=== PATIENT | male | born 1965 | race African-American/Black ===

== ENCOUNTER 2024-02-04 13:46 | Inpatient (IN) | payer OTHER, MEDICAID ==
[~2024-02-04] VITALS: Ht 185.4 cm; Wt 145.6 kg
[2024-02-04 13:47] VITALS: O2SAT 99
[2024-02-04] MEDS: SODIUM CHLORIDE 0.9% 1,000 ML IV ONE (14:11)
[2024-02-04 14:22] LABS: BASOPHILS % 0.5 % (0.0-2.0); EOSINOPHILS % 1.2 % (0.0-5.0); HEMATOCRIT. 46.3 % (42.0-52.0); HEMOGLOBIN. 15.3 g/dL (14.0-18.0); LYMPHOCYTES % 13.4 % (20.0-50.0); MEAN CORPUSCULAR HEMOGLOBIN 29.7 pg (28.0-32.0); MEAN CORPUSCULAR VOLUME 90.1 fL (80.0-94.0); MEAN PLATELET VOLUME 9.2 fl (7.4-10.4); MONOCYTES % 14.2 % (2.0-8.0); NEUTROPHILS % 70.7 % (40.0-76.0); PLATELET 201 x1000/uL (130-400); RED BLOOD CELL COUNT 5.14 mill/uL (4.7-6.1); RED CELL DISTRIBUTION WIDTH 14.5 % (11.6-14.6); WHITE BLOOD COUNT 8.6 x1000/uL (4.5-11.0)
[2024-02-04 14:28] LABS: CHLORIDE 99 mEq/L (98-107); POTASSIUM 3.8 mEq/L (3.5-5.1); SODIUM 135 mEq/L (136-145)
[2024-02-04 14:29] LABS: CARBON DIOXIDE 27 mEq/L (21-32)
[2024-02-04 14:30] LABS: CALCIUM 9.3 mg/dL (8.7-10.4)
[2024-02-04 14:34] LABS: CREATININE 2.7 mg/dL (0.6-1.3); GLUCOSE 112 mg/dL (70-105)
[2024-02-04 14:35] LABS: TROPONIN I HIGH SENSITIVITY 5 ng/L (3.0-53); UREA NITROGEN BLOOD 31 mg/dL (9-23)
[2024-02-04 14:36] LABS: ALANINE AMINOTRANSFERASE 36 IU/L (10-49); ALBUMIN 4.5 g/dL (3.2-4.8); ASPARTATE AMINOTRANSFERASE 43 IU/L (<34); BILIRUBIN DIRECT 0.3 mg/dL (<=3.0)
[2024-02-04 14:37] LABS: BILIRUBIN TOTAL 0.9 mg/dL (0.1-1.0); PROTEIN TOTAL 7.9 g/dL (6.0-8.3)
[2024-02-04 14:47] LABS: LACTIC ACID 2.3 mmol/L (0.4-2.0)
[2024-02-04 14:48] LABS: ETHANOL BLOOD < 10 mg/dL (<10)
[2024-02-04] MEDS: SODIUM CHLORIDE 0.9% (SEPSIS BOLUS) IV ONE (14:53)
[2024-02-04 14:56] LABS: INR 1.1; PROTHROMBIN TIME 11.7 sec (9.6-11.0)
[2024-02-04] MEDS ORDERED: VANCOMYCIN 1G PREMIX 200 ML IV ONE (15:00)
[2024-02-04] MEDS: PIPERACILLIN/TAZO 3.375G/50ML 50 ML IV ONE (15:01)
[2024-02-04] MEDS: VANCOMYCIN 1GM PMX (XELLIA) 200 ML IV NR (15:31)
[2024-02-04] MEDS ORDERED: ACETAMINOPHEN 325MG TABLET PO PRN (17:30)
[2024-02-04] MEDS ORDERED: CLONIDINE 0.1MG TABLET PO PRN (17:30)
[2024-02-04] MEDS ORDERED: MAGNESIUM/ALUMINUM HYDROXIDE/SIMETHICONE 30ML UDC PO PRN (17:30)
[2024-02-04] MEDS ORDERED: MEROPENEM 1,000 MG in SODIUM CHLORIDE 0.9% 100 ML IV SCH (17:30)
[2024-02-04] MEDS ORDERED: ONDANSETRON HCL 4MG/2ML INJ IV PRN (17:30)
[2024-02-04] MEDS ORDERED: NITROGLYCERIN 0.4MG TABLET SL SL PRN (17:30)
[2024-02-04] MEDS ORDERED: DOCUSATE SODIUM 100MG CAPSULE PO PRN (17:30)
[2024-02-04] MEDS ORDERED: DEXTROSE 50% WATER 50ML SYRINGE IV PRN (17:45)
[2024-02-04] MEDS: INSULIN LISPRO 100 UNITS/ML SUBCUT SCH (18:20)
[2024-02-04] MEDS: LACTATED RINGERS 1,000 ML IV SCH (18:30)
[2024-02-04] MEDS: LACTATED RINGERS 2,000 ML IV ONE (19:00)
[2024-02-04] MEDS: MEROPENEM 1G/100ML IV SCH (19:00)
[2024-02-04 19:10] LABS: IRON 31 ug/dL (65-175)
[2024-02-04 19:11] LABS: TRIGLYCERIDE 92 mg/dL (0-150)
[2024-02-04 19:12] LABS: LDL CHOLESTEROL 82 mg/dL (5-100)
[2024-02-04 19:13] LABS: CHOLESTEROL 129 mg/dL (<200); HDL CHOLESTEROL 21 mg/dL (>55); TOTAL IRON BINDING CAPACITY 499 ug/dl (250-425)
[2024-02-04 19:15] LABS: FOLIC ACID (FOLATE) SERUM > 20.00 ng/mL (>5.38)
[2024-02-04 19:16] LABS: T4 FREE 1.78 ng/dL (0.89-1.76); THYROID STIMULATING HORMONE 1.67 uIU/mL (0.55-4.78); VITAMIN B12 SERUM 776 pg/mL (211-911)
[2024-02-04] MEDS: BLOOD SUGAR DIAGNOSTIC STRIP TEST SCH (21:00)
[2024-02-04] MEDS ORDERED: ZOLPIDEM TARTRATE 5MG TABLET PO PRN (21:00)
[2024-02-04] MEDS: ASCORBIC ACID 500 MG TABLET PO SCH (22:10)
[2024-02-04] MEDS: ENOXAPARIN 30MG/0.3ML SYR SUBCUT SCH (22:13)
[2024-02-05 00:20] VITALS: BP 123/67; PULSE 88; RESP 21; TEMP 36.5292
[2024-02-05 01:15] LABS: CREATINE KINASE MB FRACTION 3.7 ng/mL (0.5-3.6)
[2024-02-05 07:13] LABS: CARBON DIOXIDE 28 mEq/L (21-32); CHLORIDE 104 mEq/L (98-107); POTASSIUM 3.4 mEq/L (3.5-5.1); SODIUM 139 mEq/L (136-145)
[2024-02-05 07:14] LABS: CALCIUM 9.3 mg/dL (8.7-10.4)
[2024-02-05 07:18] LABS: GLUCOSE 110 mg/dL (70-105)
[2024-02-05 07:19] LABS: UREA NITROGEN BLOOD 28 mg/dL (9-23)
[2024-02-05 07:20] LABS: ALANINE AMINOTRANSFERASE 35 IU/L (10-49); ALBUMIN 4.1 g/dL (3.2-4.8); ASPARTATE AMINOTRANSFERASE 39 IU/L (<34)
[2024-02-05 07:21] LABS: BILIRUBIN TOTAL 0.6 mg/dL (0.1-1.0)
[2024-02-05 07:31] LABS: CREATINE KINASE MB FRACTION 3.6 ng/mL (0.5-3.6)
[2024-02-05 07:49] LABS: CREATININE 1.7 mg/dL (0.6-1.3)
[2024-02-05 07:51] LABS: BASOPHILS % 0.5 % (0.0-2.0); DIFFERENTIAL COMMENT 0; EOSINOPHILS % 3.2 % (0.0-5.0); HEMATOCRIT. 41.4 % (42.0-52.0); HEMOGLOBIN. 13.5 g/dL (14.0-18.0); LYMPHOCYTES % 13.3 % (20.0-50.0); MEAN CORPUSCULAR HGB CONC 32.6 g/dL (31.0-37.0); MEAN CORPUSCULAR VOLUME 89.1 fL (80.0-94.0); MEAN PLATELET VOLUME 9.7 fl (7.4-10.4); MONOCYTES % 14.6 % (2.0-8.0); NEUTROPHILS % 68.4 % (40.0-76.0); PLATELET 206 x1000/uL (130-400); RED BLOOD CELL COUNT 4.64 mill/uL (4.7-6.1); RED CELL DISTRIBUTION WIDTH 14.3 % (11.6-14.6); WHITE BLOOD COUNT 8.6 x1000/uL (4.5-11.0)
[2024-02-05 08:00] VITALS: BP 130/76; RESP 16; TEMP 36.72516; O2SAT 95
[2024-02-05] MEDS: ZINC SULFATE 220 MG ( 50 ) CAPSULE PO SCH (09:31)
[2024-02-05] MEDS: ASPIRIN 81MG EC TABLET PO SCH (09:31)
[2024-02-05] MEDS: GUAIFENESIN 200MG/10ML SUGAR FREE UDC PO PRN (09:32)
[2024-02-05] MEDS: FAMOTIDINE 20MG TABLET PO SCH (09:32)
[2024-02-05] MEDS: ACETAMINOPHEN 325MG TABLET PO PRN (09:32)
[2024-02-05 12:09] VITALS: BP 95/75; PULSE 87; RESP 16; TEMP 36.9474; O2SAT 94
[2024-02-05] MEDS: VANCOMYCIN 1GM PMX (XELLIA) 200 ML IV SCH (12:52)
[2024-02-05] MEDS ORDERED: VANCOMYCIN 750MG PMX (XELLIA) 150 ML IV SCH (15:00)
[2024-02-05 16:00] VITALS: BP 120/60; PULSE 83; RESP 16; TEMP 36.78072; O2SAT 98
[2024-02-05 20:00] VITALS: BP 109/62; PULSE 81; RESP 24; TEMP 37.11408; O2SAT 94
[2024-02-06] VITALS (7 sets, daily range): BP systolic 108–139; BP diastolic 59–78; PULSE 80–100; RESP 17–22; TEMP 36.50292–37.16964; O2SAT 92–98
[2024-02-06 06:37] LABS: CARBON DIOXIDE 27 mEq/L (21-32); CHLORIDE 104 mEq/L (98-107); POTASSIUM 3.7 mEq/L (3.5-5.1); SODIUM 141 mEq/L (136-145)
[2024-02-06 06:38] LABS: CALCIUM 9.7 mg/dL (8.7-10.4)
[2024-02-06 06:43] LABS: CREATININE 1.3 mg/dL (0.6-1.3); GLUCOSE 104 mg/dL (70-105); UREA NITROGEN BLOOD 18 mg/dL (9-23)
[2024-02-06] MEDS: VANCOMYCIN 750MG PREMIX 150 ML IV SCH (22:24)
[2024-02-07] VITALS (8 sets, daily range): BP systolic 131–156; BP diastolic 57–86; PULSE 79–87; RESP 16–20; TEMP 36.72516–37.16964; O2SAT 91–98
[2024-02-07] MEDS: IPRATROPIUM/ALBUTEROL 0.5-3(2.5)MG/3ML NEB NEB PRN (11:20)
[2024-02-07] MEDS ORDERED: MEROPENEM 1G/100ML IV SCH (14:00)
[2024-02-07] MEDS ORDERED: BENA1TAB21 MT (16:24)
[2024-02-07] MEDS ORDERED: AMLO10TA80 PO (16:28)
[2024-02-07] MEDS ORDERED: ATOR20TA65 PO (16:28)
[2024-02-07] MEDS ORDERED: CARV6.2548 PO (16:28)
[2024-02-07] MEDS ORDERED: METF-414 MT (16:28)
[2024-02-07] MEDS: CEFTRIAXONE 1GM/50ML 50ML IV SCH (16:36)
[2024-02-08] VITALS: BP 139/66; PULSE 88; RESP 16; TEMP 36.61404; O2SAT 98
[2024-02-08 04:00] VITALS: BP 140/75; PULSE 79; RESP 18; TEMP 36.9474; O2SAT 97
[2024-02-08 08:00] VITALS: BP 135/78; RESP 18; TEMP 37.00296
[2024-02-08 10:04] VITALS: BP 135/78; TEMP 98.6
== END 2024-02-08 11:28 | disposition home or self-care (01) | DRG 871 ==
LOC: ER 13:46 → EDBEDREQ 16:28 → 5WST 22:09 → 3WST 02-05 00:27
PROVIDERS: ADMIT Internal Medicine; ATTEND Internal Medicine
DX: A41.9 Sepsis, unspecified organism (principal); J18.9 Pneumonia, unspecified organism; R65.21 Severe sepsis with septic shock; N17.0 Acute kidney failure with tubular necrosis; E87.1 Hypo-osmolality and hyponatremia; E11.9 Type 2 diabetes mellitus without complications; E78.00 Pure hypercholesterolemia, unspecified; I10 Essential (primary) hypertension; R19.7 Diarrhea, unspecified; Z79.4 Long term (current) use of insulin
CPT/HCPCS: 36415; 71045; 80048; 80053; 80061; 80076; 80202; 80320; 82550; 82553; 82607; 82746; 82962; 83036; 83540; 83550; 83605; 83735; 84100; 84145; 84439; 84443; 84484; 85025; 93005; 93306; 93970; 94640; 99291; J0696; J1650; J2185; J2405; J2543; J3370; J7030; G0480